=== PATIENT | male | born 1995 | race Caucasian/White ===

== ENCOUNTER 2020-11-15 18:38 | Emergency (ER) | payer BC, OTHER ==
[2020-11-15] MEDS ORDERED: Lidocaine 1% 30 ML SDV INJECT ONE (19:06)
[2020-11-15] MEDS ORDERED: Bacitracin Oint 1 GM U/D Packet TOP ONE (19:09)
--- NOTE | 2020-11-15 19:32 | EDM.PDOC ---
ED HPI GENERAL MEDICAL PROBLEM - General Chief Complaint: Laceration Stated Complaint: RIGHT INDEX FINGER LACERATION Time Seen by Provider: 11/15/20 19:20 Source of Information: Reports: Patient, RN, RN Notes Reviewed History Limitations: Reports: No Limitations - History of Present Illness INITIAL COMMENTS - FREE TEXT/NARRATIVE: Patient presents to the ED via personal vehicle with complaints of laceration to left anterior index finger. The patient reports the laceration occurred approximately 45 minutes prior to his arrival to this facility; he sliced his hand on a "..sharp piece of metal" while at work. He denies loss of motor or sensory function to the digit. Right Finger-Index Pain Score (Numeric/FACES): 1 - Related Data Allergies Allergy/AdvReac Type Severity Reaction Status Date / Time amoxicillin AdvReac Vomiting Verified 11/15/20 18:49 Home Meds: Home Meds . [No Known Home Meds] 11/15/20 [History] Past Medical History - Past Surgical History HEENT Surgical History: Reports: Tonsillectomy Social & Family History - Tobacco Use Tobacco Use Status *Q: Never Tobacco User Second Hand Smoke Exposure: No - Caffeine Use Caffeine Use: Reports: None - Recreational Drug Use Recreational Drug Use: No ED ROS GENERAL - Review of Systems Review Of Systems: Comprehensive ROS is negative, except as noted in HPI. ED EXAM, SKIN/RASH Exam: See Below Exam Limited By: No Limitations General Appearance: Alert, No Apparent Distress Peripheral Pulses: 2+: Radial (L), Radial (R) Extremities: Normal Capillary Refill, Arm Pain (Laceration to anterior aspect of second digit), Limited Range of Motion, Redness (Surrounging wound). No: Mottled, Pallor Neurological: Alert, Oriented, CN II-XII Intact, Normal Cognition, Normal Gait, Normal Reflexes, No Motor/Sensory Deficits Psychiatric: Normal Affect, Normal Mood Skin: Warm, Dry, Wound/Incision (2cm clean laceration to anterior aspect of second digit). No: Ecchymosis, Erythema, Increased Warmth, Mottled, Pallor Location, Skin: Upper Extremity, Right Characteristics: Other Associated features: Tenderness. No: Swelling, Inflammation, Crusting, Weeping ED SKIN PROCEDURES - Laceration/Wound Repair Left Anterior Medial Proximal Digit - 2nd (Index) Appearance: Subcutaneous Distal NVT: Neuro & Vascular Intact, No Tendon Injury Anesthetic Type: Local Local Anesthesia - Lidocaine (Xylocaine): 1% Plain Local Anesthetic Volume: 5cc Skin Prep: Chlorhexidine (Hibiciens), Sterile Drape Exploration/Debridement/Repair: Wound Explored, In a Bloodless Field, Explored to Base, Wound Margins Revised Closed with: Sutures Lac/Wound length In cm: 2 Suture Size: 4-0 # of Sutures: 3 Suture Type: Prolene Drain Placement: No Sterile Dressing Applied: Nurse Tetanus Status Addressed: Yes Complications: No Course - Vital Signs Last Recorded V/S: Last Vital Signs Temp 97.6 F 11/15/20 18:46 Pulse 81 11/15/20 18:46 Resp 18 11/15/20 18:46 BP 125/77 11/15/20 18:46 Pulse Ox 99 11/15/20 18:46 - Orders/Labs/Meds Meds: Medications Discontinued Medications Generic Name Dose Route Start Last Admin Trade Name Gris PRN Reason Stop Dose Admin Bacitracin 1 dose 11/15/20 19:09 11/15/20 19:14 Bacitracin Oint 1 Gm TOP 11/15/20 19:10 1 dose ONETIME ONE Administration Lidocaine HCl 30 ml 11/15/20 19:06 11/15/20 19:14 Xylocaine-Mpf 1% INJECT 11/15/20 19:07 30 ml ONETIME ONE Administration - Re-Assessments/Exams Free Text/Narrative Re-Assessment/Exam: 11/15/20 Laceration sutured without complication. Patient is up to date on his tetanus vaccination. Discussed supportive cares and importance of keeping wound clean. Departure - Departure Time of Disposition: 19:30 Disposition: Home, Self-Care 01 Condition: Good Clinical Impression: Laceration of left index finger w/o foreign body w/o damage to nail Qualifiers: Encounter type: initial encounter Qualified Code(s): S61.211A - Laceration without foreign body of left index finger without damage to nail, initial encounter - Discharge Information *PRESCRIPTION DRUG MONITORING PROGRAM REVIEWED*: Not Applicable *COPY OF PRESCRIPTION DRUG MONITORING REPORT IN PATIENT AMBER: Not Applicable Instructions: Laceration Care, Adult Referrals: PCP,None [Primary Care Provider] - Forms: ED Department Discharge Additional Instructions: 1.) Follow up at any primary care facility in 7 days for suture removal. 2.) Keep wound clean and dry; try to wear gloves at work, if possible. 3.) Should you develop significant pain, redness, swelling, or drainage from the wound return to your primary care provider for evaluation of the wound. Sepsis Event Note (ED) - Evaluation Sepsis Screening Result: No Definite Risk - Focused Exam Vital Signs: Vital Signs Temp Pulse Resp BP Pulse Ox 11/15/20 18:46 97.6 F 81 18 125/77 99
== END 2020-11-15 19:39 | disposition home or self-care (01) ==
LOC: DL.ED 18:38
DX: S61.211A Laceration without foreign body of left index finger without damage to nail, initial encounter (principal); Z88.0 Allergy status to penicillin; W26.8XXA Contact with other sharp object(s), not elsewhere classified, initial encounter; Y92.89 Other specified places as the place of occurrence of the external cause; Y99.0 Civilian activity done for income or pay
CPT/HCPCS: 12001; 99282-25; 99283